=== PATIENT | male | born 1960 | race Hispanic/Latino ===

== ENCOUNTER 2016-09-19 18:21 | Outpatient (CLI) | payer BC, OTHER ==
[2016-09-19 19:01] LABS: #Basophils 0.1 thou/uL (0.0-0.2); #Eosinphils 0.4 thou/uL (0.0-0.7); #Lymphocytes 2.9 thou/uL (1.20-3.40); #Monocytes 0.7 thou/uL (0.11-0.59); #Neutrophils 4.9 thou/uL (1.40-6.50); %Basophils 1.5 % (0.0-1.0); %Eosinophils 3.9 % (0.0-10.0); %Lymphocytes 32.3 % (21.0-51.0); %Monocytes 7.6 % (0.0-10.0); Hematocrit 53.5 % (42.0-52.0); Mean Platelet Volume 7.8 fL (7.4-10.4); Red Blood Cell (RBC) Count 5.82 mill/uL (4.70-6.10); White Blood Cell (WBC) Count 8.9 thou/uL (4.8-10.8)
[2016-09-19 19:02] LABS: ALT (SGPT) 33 U/L (0-55); AST (SGOT) 27 U/L (5-34); Alkaline Phosphatase 88 U/L (40-150); Anion Gap 14 mmol/L (10-20); BUN (Urea Nitrogen) 12 mg/dL (8.4-25.7); Bilirubin, Total 0.5 mg/dL (0.2-1.2); Calc. Creatinine Clearance 0 mL/min (70-130); Calcium 9.6 mg/dL (7.8-10.44); Carbon Dioxide 22 mmol/L (22-29); Chloride 108 mmol/L (98-107); Estimated GFR-MDRD Greater than 90; Globulin 3.4 g/dL (2.4-3.5); Hemoglobin A1c 5.8 % (4.0-6.0); LDL Cholesterol, Calculated 99 mg/dL; Protein, Total 7.7 g/dL (6.0-8.3)
[2016-09-20 17:44] LABS: Microalbumin Urine Less than 1.0 mg/dL (0.5-50.0)
== END 2016-09-19 18:22 | disposition home or self-care (01) ==
LOC: NAV SJFMSP 18:21
PROVIDERS: ATTEND Family Medicine
DX: Z00.00 Encounter for general adult medical examination without abnormal findings (principal)
CPT/HCPCS: 80053; 80061; 82043; 82570; 83036; 84439; 84443; 85025; G0103